=== PATIENT | female | born 2000 | race Two or more races ===

== ENCOUNTER 2024-12-26 00:40 | Inpatient (IN) | payer OTHER ==
[~2024-12-26] VITALS: Ht 154.9 cm; Wt 47.6 kg
[2024-12-26] MEDS ORDERED: VERIPRED 220 MG/5 ML (00:49)
--- NOTE | 2024-12-26 00:49 | NUR ---
SE RECIBE PTE ALERTA Y ORIENTADA LA CUAL REFIERE VENIR POR DOLOR ANAL DEBIDO A FISTULA. SE MIDEN S/V A PTE Y SE UBICA.
[2024-12-26] MEDS ORDERED: 0.9 % SODIUM CHLORIDE 1,000 ML IV STA (03:23)
[2024-12-26] MEDS ORDERED: PIPERACILLIN/TAZOBACTAM SODIUM 3.375 GM VIAL IV STA (03:25)
--- NOTE | 2024-12-26 03:36 | NUR ---
RN SALINAS EDUCA A PACIENTE SOBRE PROCESO DE TARAS DE MUESTRAS, CANALIZACION Y ADMINISTRACION DE MEDICAMENTOS, REFIERE ENTENDER. SE EJECUTAN ORDENES BAJO MEDIDAS ASEPTICAS. PENDIENTE A CT.
[2024-12-26] MEDS ORDERED: KETOROLAC TROMETHAMINE 30 MG VIAL IV STA (03:49)
[2024-12-26 04:01] LABS: BASO % 0.2 % (0.1-1.2); EOS # 0.11 (0.04-0.54); EOS % 0.8 % (0.7-7.0); HEMATOCRIT 40.4 % (34.1-44.9); HEMOGLOBIN 13.1 g/dL (11.2-15.7); LYMPH # 2.28 (1.18-3.74); LYMPH % 17.5 % (19.3-53.1); MEAN CORPUSCULAR HEMOGLOBIN 27.8 pg (25.6-32.2); MONO # 1.38 (0.24-0.82); MONO % 10.6 % (4.7-12.5); NEUT # 9.17 (1.56-6.13); NEUT % 70.5 % (34.0-71.1); PLATELET COUNT 355 K/uL (163-369); RED BLOOD COUNT 4.71 M/uL (3.93-5.22); RED CELL DISTRIBUTION WIDTH 14.1 % (11.6-14.4)
[2024-12-26 04:10] LABS: ERYTHROCYTE SEDIMENTATION RATE 45 mm/hr (0-20)
[2024-12-26 04:13] LABS: INR 1.06; PARTIAL THROMBOPLASTIN TIME 28.2 SECONDS (22.0-34.0); PROTHROMBIN TIME 11.5 SECONDS (9.0-11.5)
[2024-12-26 04:16] LABS: ALBUMIN 3.6 gm/dL (3.4-5.0); BILIRUBIN TOTAL 0.4 mg/dL (0.3-1.2); CALCIUM 8.7 mg/dL (8.5-10.1); CREATININE SERUM 0.66 mg/dL (0.55-1.02); GFR 110.03; GLOBULINA 5.2 G/DL (2.4-3.5); TOTAL PROTEIN 8.8 gm/dL (6.4-8.2)
[2024-12-26 04:27] LABS: POTASSIUM 2.9 mEq/L (3.5-5.1)
[2024-12-26] MEDS ORDERED: POTASSIUM CHLORIDE 8 MEQ TABLET PO STA (05:08)
--- NOTE | 2024-12-26 07:59 | NUR ---
PACIENTE ALERTA Y ORIENTADA X3 EN LILA POSICION MAS BAJA Y BARANDAS ELEVADAS POR SEGURIDAD. CANALIZACION PATENTE RISHABH DE EDEMA Y ERITEMA CON IVF'S HE ORDEN MEDICA. PENDINETE ENTREGA DE U/A Y REPORTE DE CT.
[2024-12-26] MEDS ORDERED: PIPERACILLIN/TAZOBACTAM SODIUM 3.375 GM VIAL IV ONE (13:30)
--- NOTE | 2024-12-26 13:55 | NUR ---
SE ORIENTA A PTE SOBRE TX MEDICO EL MISMO INDICA ENTENDER Y ACEPTAR, SE ADMINISTRAN MEDICAMENTOS HE ORDEN MEDICA BAJO MEDIDAS ASEPTICAS.
[2024-12-26] MEDS ORDERED: MORPHINE SULFATE 4 MG/ML VIAL IV ONE (20:00)
[2024-12-26] MEDS ORDERED: PIPERACILLIN/TAZOBACTAM SODIUM 3.375 GM in 0.9 % SODIUM CHLORIDE 100 ML IV SCH (21:02)
[2024-12-26] MEDS ORDERED: RINGERS SOLUTION,LACTATED 1,000 ML IV SCH (21:15)
[2024-12-26] MEDS ORDERED: ACETAMINOPHEN 500 MG GEL..CAP PO PRN (21:15)
[2024-12-26] MEDS ORDERED: MORPHINE SULFATE 4 MG/ML VIAL IV PRN (21:15)
[2024-12-26] MEDS ORDERED: PREDNISONE 20 MG TABLET PO SCH (21:39)
[2024-12-26 23:29] VITALS: BP 96/53; O2SAT 98
[2024-12-27 00:34] LABS: INR 1.09; PROTHROMBIN TIME 11.8 SECONDS (9.0-11.5)
[2024-12-27 00:37] LABS: MAGNESIUM 1.8 mg/dL (1.8-2.4); PHOSPHOROUS 3.2 mg/dL (2.5-4.9)
[2024-12-27 00:41] LABS: C-REACTIVE PROTEIN 2.01 MG/DL (0.00-0.29)
[2024-12-27 08:00] VITALS: BP 96/62; O2SAT 99
[2024-12-27] MEDS ORDERED: MORPHINE SULFATE 2 MG/ML CARTRIDGE IV PRN (11:45)
[2024-12-27 16:00] VITALS: BP 99/55; O2SAT 98
[2024-12-28 01:59] VITALS: BP 101/50; O2SAT 100
[2024-12-28 08:00] VITALS: BP 98/59; O2SAT 99
[2024-12-28] MEDS ORDERED: PREDNISONE 10 MG TABLET PO SCH (09:00)
[2024-12-28 17:55] LABS: ALBUMIN 3.2 gm/dL (3.4-5.0); BILIRUBIN TOTAL 0.46 mg/dL (0.3-1.2); CALCIUM 8.5 mg/dL (8.5-10.1); CREATININE SERUM 0.66 mg/dL (0.55-1.02); GFR 110.03; GLOBULINA 4.5 G/DL (2.4-3.5); POTASSIUM 3.12 mEq/L (3.5-5.1); TOTAL PROTEIN 7.7 gm/dL (6.4-8.2)
[2024-12-28 19:42] LABS: HEMOGLOBIN 12.8 g/dL (11.2-15.7); RED BLOOD COUNT 4.63 M/uL (3.93-5.22)
[2024-12-28 19:43] LABS: BASO % 0.1 % (0.1-1.2); EOS # 0.01 (0.04-0.54); EOS % 0.1 % (0.7-7.0); LYMPH % 5.2 % (19.3-53.1); MEAN CORPUSCULAR HEMOGLOBIN 27.6 pg (25.6-32.2); MONO # 0.62 (0.24-0.82); MONO % 4.1 % (4.7-12.5); NEUT # 13.75 (1.56-6.13); PLATELET COUNT 322 K/uL (163-369)
[2024-12-29 00:17] VITALS: BP 100/60; O2SAT 97
[2024-12-29 08:00] VITALS: BP 102/65; O2SAT 95
[2024-12-29] MEDS ORDERED: POTASSIUM CHLORIDE 20MEQ/100ML H2O PB IV NR (11:45)
[2024-12-29] MEDS ORDERED: POTASSIUM CHLORIDE 10 MEQ CAPSULE PO NR (11:45)
[2024-12-29 16:00] VITALS: BP 123/75; O2SAT 99
[2024-12-29] MEDS ORDERED: fentaNYL CITRATE 50 MCG/ML AMPUL IV PUSH ONE (16:45)
[2024-12-29] MEDS ORDERED: MIDAZOLAM HCL 2 MG/2 ML VIAL IV PUSH ONE (16:45)
[2024-12-29] MEDS ORDERED: MORPHINE SULFATE 4 MG/ML CARTRIDGE IV SCH ×2 (17:00→19:00)
[2024-12-29] MEDS ORDERED: MORPHINE SULFATE 4 MG/ML CARTRIDGE IV PRN ×2 (19:00→19:30)
== END 2024-12-29 23:00 | disposition left against medical advice (07) | DRG 394 ==
LOC: ER 01:36 → SURH 21:34 → O/R 12-28 12:35 → SURH 12-28 13:13
PROVIDERS: General Practice; ADMIT Internal Medicine; ATTEND Internal Medicine
PROC: BW21YZZ Computerized Tomography (CT Scan) of Abdomen and Pelvis using Other Contrast (ICD-10-PCS; 2024-12-26)
PROC: 0D9P30Z Drainage of Rectum with Drainage Device, Percutaneous Approach (ICD-10-PCS; principal; 2024-12-29)
DX: K61.1 Rectal abscess (principal); K50.90 Crohn's disease, unspecified, without complications; E87.6 Hypokalemia